=== PATIENT | female | born 1990 | race Caucasian/White ===

== ENCOUNTER 2022-08-21 05:57 | Emergency (ER) | payer MEDICAID ==
[~2022-08-21] VITALS: Ht 162.6 cm; Wt 71.8 kg
--- NOTE | 2022-08-21 06:03 | NUR ---
MOM NUMBER - PIASA - [id number] OR [id number]
[2022-08-21] MEDS ORDERED: ketorolac trometh. 30mg/ml inj. IV ONE (08:05)
[2022-08-21] MEDS ORDERED: proCHLORperazine 10 MG/2 ml inj IV ONE (08:05)
[2022-08-21] MEDS ORDERED: normal saline 1000ml 1,000 ML IV ONE (08:05)
[2022-08-21 09:39] VITALS: BP 105/65
[2022-08-21] MEDS ORDERED: PROC-8 PO (10:10)
== END 2022-08-21 11:08 | disposition home or self-care (01) ==
LOC: ER 05:58
DX: G43.909 Migraine, unspecified, not intractable, without status migrainosus (principal); R11.2 Nausea with vomiting, unspecified; Z88.2 Allergy status to sulfonamides; Z79.899 Other long term (current) drug therapy
CPT/HCPCS: 96361; 96374; 96375; 99284; J0780; J1885; J7030

== ENCOUNTER 2023-12-24 09:18 | Day surgery (SDC) | payer MEDICAID ==
[2023-12-18 13:25] LABS: BASOPHILS % (AUTO) 0.6 % (0-1); EOSINOPHILS # (AUTO) 0.1 X10'3 (0-0.9); EOSINOPHILS % (AUTO) 0.7 % (0-6); LYMPHOCYTES # (AUTO) 2.8 X10'3 (1.1-4.8); LYMPHOCYTES % (AUTO) 38.4 % (21-51); MEAN CORPUSCULAR HEMOGLOBIN 30.5 PG (27.0-31.0); MEAN CORPUSCULAR HGB CONC 33.3 g/dL (33.0-36.5); MEAN CORPUSCULAR VOLUME 91.5 FL (78-98); MEAN PLATELET VOLUME 10.4 FL (7.4-10.4); MONOCYTES # (AUTO) 0.5 X10'3 (0-0.9); MONOCYTES % (AUTO) 7.1 % (2-12); NEUTROPHILS # (AUTO) 3.9 X10'3 (1.8-7.7); NEUTROPHILS % (AUTO) 53.2 % (42-75); PRE OP HEMATOCRIT 43.1 % (35.0-45.0); PRE OP HEMOGLOBIN 14.4 g/dL (12.0-16.0); PRE OP PLATELET COUNT 284 X10'3 (140-440); PRE OP WHITE BLOOD COUNT 7.3 10'3 (4.8-10.8); RED BLOOD COUNT 4.71 X10'6 (4.20-5.60); RED CELL DISTRIBUTION WIDTH 13.7 % (11.5-14.5)
[2023-12-18 13:43] LABS: HCG SERUM QL NEGATIVE
[2023-12-18 14:09] LABS: ALBUMIN 3.9 G/DL (3.4-5.0); ALBUMIN/GLOBULIN RATIO 1.1 (1.1-1.5); ALKALINE PHOSPHATASE 60 IU/L (46-116); BLOOD UREA NITROGEN 10 MG/DL (7-18); BUN/CREATININE RATIO 14.3 (10.0-20.0); CALCIUM 8.5 MG/DL (8.5-10.1); CHLORIDE 105 MMOL/L (99-107); PRE OP ALT 17 U/L (30-65); PRE OP ANION GAP 4 (8-16); PRE OP AST 11 U/L (10-37); PRE OP BILIRUB, TOTAL 0.3 MG/DL (0.0-1.0); PRE OP GLUCOSE 83 MG/DL (70-104); PRE OP POTASSIUM 3.9 MMOL/L (3.4-5.1); PRE OP SODIUM 137 MMOL/L (135-145); TOTAL CARBON DIOXIDE 28.1 MMOL/L (24-32); TOTAL PROTEIN 7.5 G/DL (6.4-8.2); eGFR > 90 ML/MIN
[~2023-12-24] VITALS: Ht 162.6 cm; Wt 58.3 kg
[2023-12-24] VITALS (10 sets, daily range): BP systolic 112–141; BP diastolic 66–95; PULSE 78–118; RESP 11–18; TEMP 99.1; O2SAT 96–100
[2023-12-24] MEDS: cefazolin 2gm/D5W 100mL 100 ML IV ONE (05:30)
[~2023-12-24 09:18] MED LIST: ALBU8HFA PO; ONDA-103 PO; RIME75TA PO; SERT-432 PO
[2023-12-24] MEDS: famotidine 20mg tablet PO ONE (10:05)
[2023-12-24] MEDS: ringers solution, lacted 1,000 ML IV SCH (10:06)
[2023-12-24] MEDS: albuterol 2.5 MG/3 ML nebule NEB ONE (10:49)
[2023-12-24] MEDS ORDERED: BUPIVAcaine/PF 2.5mg/ml (0.25%) 10ml vial ONE (10:49)
[2023-12-24] MEDS ORDERED: sevoflurane 250ml liquid IH ONE (11:02)
[2023-12-24] MEDS ORDERED: fentaNYL/PF 50MCG/1 ML 2ML syringe ONE (11:11)
[2023-12-24] MEDS ORDERED: midazolam 1 mg/ML 2ml injection ONE (11:12)
[2023-12-24] MEDS ORDERED: propofol inj 20 ML IV ONE (11:17)
[2023-12-24] MEDS ORDERED: acetaminophen 1,000mg/100ml IV 100 ML IV ONE (11:17)
[2023-12-24] MEDS ORDERED: ondansetron/PF 4mg/2ml inj ONE (11:17)
[2023-12-24] MEDS ORDERED: LIDOcaine 2% (20mg/ml) 5ml vial ONE (11:17)
[2023-12-24] MEDS ORDERED: dexamethasone sod phosphate 4mg/ml inj. ONE (11:17)
[2023-12-24] MEDS: LIDOcaine 1% (10mg/ml)w/preservative inj. 20ml MDV ONE (11:22)
[2023-12-24] MEDS: BUPIVAcaine/PF 2.5 mg/ml (0.25%) 30ml vial IJ ONE (11:28)
[2023-12-24] MEDS ORDERED: morphine 2 MG/ML inj. syringe IV PRN (11:35)
[2023-12-24] MEDS ORDERED: ondansetron/PF 4mg/2ml inj IV PRN (11:35)
[2023-12-24] MEDS ORDERED: labetalol 20mg/4ml (5mg/ml) syringe IV PRN (11:35)
[2023-12-24] MEDS ORDERED: ringers solution, lacted 1,000 ML IV SCH (11:35)
[2023-12-24] MEDS ORDERED: meperidine/PF 25mg/ml syringe IV PRN ×2 (11:35)
[2023-12-24] MEDS ORDERED: hydrALAZINE 20mg/ml inj. IV PRN (11:35)
[2023-12-24] MEDS ORDERED: morphine 4 MG/ML inj SYRINge IV PRN (11:35)
== END 2023-12-24 12:49 | disposition home or self-care (01) ==
LOC: PAS 09:18
PROVIDERS: ATTEND Surgery
DX: R92.8 Other abnormal and inconclusive findings on diagnostic imaging of breast (principal); J45.909 Unspecified asthma, uncomplicated; F43.10 Post-traumatic stress disorder, unspecified; K21.9 Gastro-esophageal reflux disease without esophagitis; G43.909 Migraine, unspecified, not intractable, without status migrainosus; Z79.899 Other long term (current) drug therapy; Z88.2 Allergy status to sulfonamides
CPT/HCPCS: 19125; 36415; 80053; 82948; 84703; 85025; 94760; J0131; J0690; J1100; J2250; J2405; J2704; J3010; J3490; J7030; J7120; Z7506; Z7512; A4215; A4618; A6449; A7000